=== PATIENT | male | born 1985 | race Two or more races ===

== ENCOUNTER 2023-10-10 09:54 | Emergency (ER) | payer SELFPAY ==
[2023-10-10 10:06] VITALS: TEMP 98; BMI 51.5
[2023-10-10] MEDS ORDERED: ALBUTEROL SO4 2.5/IPRATROPIUM 0.5 INH SOL 3 ML VIAL.NEB. NEB ONE (10:28)
[2023-10-10] MEDS ORDERED: methylPREDNISolone NA SUCC 125 MG/2 ML VIAL ONE (10:28)
[2023-10-10] MEDS: ALBUTEROL SO4 2.5/IPRATROPIUM 0.5 INH SOL 3 ML VIAL.NEB. NEB ONE (10:34)
[2023-10-10] MEDS ORDERED: predniSONE 20 MG TABLET (UD) ONE (10:38)
[2023-10-10] MEDS: predniSONE 20 MG TABLET (UD) PO ONE (10:40)
[2023-10-10] MEDS: methylPREDNISolone NA SUCC 125 MG/2 ML VIAL IVPB ONE (10:48)
[2023-10-10] MEDS ORDERED: LORATADINE 10 MG TABLET ONE (11:11)
[2023-10-10] MEDS: LORATADINE 10 MG TABLET PO ONE (11:14)
[2023-10-10] MEDS: ALBUTEROL SO4 2.5/IPRATROPIUM 0.5 INH SOL 3 ML VIAL.NEB. NEB SCH (11:16)
[2023-10-10 12:18] VITALS: BP 143/97; PULSE 99; RESP 22
[2023-10-10] MEDS ORDERED: ALBUTEROL SO4 HFA INHALER IH ONE (12:48)
[2023-10-10] MEDS: ALBUTEROL SO4 HFA INHALER IH ONE (12:50)
== END 2023-10-10 12:54 | disposition home or self-care (01) ==
LOC: JER 09:54
PROC: 3E0F7GC Introduction of Other Therapeutic Substance into Respiratory Tract, Via Natural or Artificial Opening (ICD-10-PCS; principal; 2023-10-10)
DX: J45.20 Mild intermittent asthma, uncomplicated (principal); R06.02 Shortness of breath; R05.9 Cough, unspecified; R07.89 Other chest pain; R09.81 Nasal congestion
CPT/HCPCS: 93005; 93010; 99283-25